=== PATIENT | male | born 1980 | race Caucasian/White ===

== ENCOUNTER 2017-03-26 10:54 | Emergency (ER) | payer BC, OTHER ==
[~2017-03-26] VITALS: Ht 185.4 cm; Wt 113.4 kg
[~2017-03-26 10:54] MED LIST: NAPR-243 PO; TRM50T PO
[2017-03-26 11:29] LABS: BASOPHILS % (AUTO) 0 % (0-10); EOSINOPHILS % (AUTO) 0 % (0-10); HEMATOCRIT 47 % (40-54); HEMOGLOBIN 16.7 G/DL (13.3-17.7); LYMPHOCYTES # (AUTO) 1.1 X 10^3 (1.0-4.0); LYMPHOCYTES % (AUTO) 13 % (12-44); MEAN CORPUSCULAR HEMOGLOBIN 31 PG (25-34); MEAN CORPUSCULAR HGB CONC 36 G/DL (32-36); MEAN CORPUSCULAR VOLUME 87 FL (80-99); MEAN PLATELET VOLUME 9.2 FL (7.4-10.4); MONOCYTES # (AUTO) 0.4 X 10^3 (0.0-1.0); MONOCYTES % (AUTO) 4 % (0-12); NEUTROPHILS # (AUTO) 6.7 X 10^3 (1.8-7.8); NEUTROPHILS % (AUTO) 82 % (42-75); PLATELET COUNT 265 10^3/uL (130-400); RED BLOOD COUNT 5.35 10^6/uL (4.35-5.85); RED CELL DISTRIBUTION WIDTH 12.3 % (10.0-14.5); WHITE BLOOD COUNT 8.2 10^3/uL (4.3-11.0)
[2017-03-26] MEDS ORDERED: NS IV 1000 ML 1,000 ML IV ONE (11:44)
[2017-03-26] MEDS ORDERED: FAMOTIDINE 20MG/2ML IV (PEPCID) IV STA (11:44)
--- NOTE | 2017-03-26 11:44 | ED Abdominal Pain ---
General Chief Complaint: Abdominal/GI Problems Stated Complaint: ABD PAIN Nursing Triage Note: pt presents to ed with upper abdominal pain starting at 0200 this am. Pt reports no v/d. Sepsis Screen: No Definite Risk Source of Information: Patient Exam Limitations: No Limitations History of Present Illness Date Seen by Provider: Mar 26, 2017 Time Seen By Provider: 11:44 Initial Comments 36-year-old male patient presents to the emergency department complains of generalized abdominal cramping with the greatest cramping in the epigastric area beginning 0200 this a.m. Patient denies vomiting or diarrhea. States he does feel like the vomiting and diarrhea may start soon. He did drink alcohol and eat a lot of spicy/fried foods last night while watching the game. Timing/Duration: Constant, Other (onset at 0200 this AM.) Severity/Quality: Burning, Cramping Location: Generalized Abdomen (with greatest pain in the upper abdomen.) Radiation: Epigastric Activities at Onset: Sleeping Modifying Factors: Worsens With Eating, Worsens With Palpation Allergies and Home Medications Allergies Coded Allergies: No Known Drug Allergies (Unverified , 11/13/10) Home Medications Famotidine 20 Mg Tablet, 20 MG PO BID, #30 Ref 0 Prescribed by: DASH SERRANO on 03/26/17 1357 Naproxen 500 Mg Tablet, 1 EACH PO TID PRN, #20 Ref 0 FOR PAIN Prescribed by: XIOMY KENNEDY on 11/13/10 1420 Omeprazole 40 Mg Capsule.dr, 40 MG PO DAILY, #30 Ref 0 Prescribed by: DASH SERRANO on 03/26/17 1402 Ondansetron 8 Mg Tab.rapdis, 8 MG PO Q6H PRN for NAUSEA/VOMITING-1ST LINE, #10 Ref 0 Prescribed by: DASH SERRANO on 03/26/17 1357 Tramadol Hcl 50 Mg Tab, 50 MG PO Q4-6HOURS PRN, #20 Ref 0 FOR PAIN Prescribed by: XIOMY KENNEDY on 11/13/10 1420 Review of Systems Constitutional: No chills, No diaphoresis, No dizziness, No fever, No malaise, No other (denies fatigue) EENTM: No Symptoms Reported Respiratory: Denies Cough, Denies Shortness of Air Cardiovascular: Denies Chest Pain, Denies Palpitations Gastrointestinal: See HPI, Denies Abdomen Distended, Abdominal Pain, Denies Constipated, Denies Diarrhea, Denies Difficulty Swallowing, Nausea, Poor Appetite, Poor Fluid Intake, Denies Rectal Bleeding, Denies Vomiting Genitourinary: Denies Burning, Denies Frequency, Denies Flank Pain, Denies Hematuria Musculoskeletal: no symptoms reported Skin: no symptoms reported Psychiatric/Neurological: No Symptoms Reported All Other Systems Reviewed Negative Unless Noted: Yes (Negative excepted noted.) Past Lzdabqf-Rhsmwn-Lqdbrn Hx Patient Social History Alcohol Use: Occasionally Uses Alcohol Beverage of Choice: Beer Recreational Drug Use: No Smoking Status: Never a Smoker 2nd Hand Smoke Exposure: No Recent Foreign Travel: No Contact w/Someone Who Travel: No Recent Infectious Disease Expo: No Recent Hopitalizations: No Physical Abuse: No Sexual Abuse: No Mistreated: No Fear: No Seasonal Allergies Seasonal Allergies: No Surgeries History of Surgeries: Yes (l knee) Respiratory History of Respiratory Disorde: No Cardiovascular History of Cardiac Disorders: No Neurological History of Neurological Disord: No Genitourinary History of Genitourinary Disor: No Gastrointestinal History of Gastrointestinal Di: No Musculoskeletal History of Musculoskeletal Dis: No Endocrine History of Endocrine Disorders: No HEENT History of HEENT Disorders: No Cancer History of Cancer: No Psychosocial History of Psychiatric Problem: No Suicide Risk Score: 0 Blood Transfusions History of Blood Disorders: No Reviewed Nursing Assessment Reviewed/Agree w Nursing PMH: Yes Family Medical History Significant Family History: No Pertinent Family Hx Physical Exam Vital Signs VS - Last 72 Hours, by Label 03/26/17 03/26/17 11:34 14:11 Temp 97.9 97.9 Pulse 66 70 Resp 18 18 B/P (MAP) 176/92 (120) Pulse Ox 99 100 Capillary Refill : Less Than 3 Seconds General Appearance: WD/WN, no apparent distress HEENT: PERRL/EOMI, pharynx normal Neck: supple, normal inspection Respiratory: lungs clear, normal breath sounds, no respiratory distress, no accessory muscle use Cardiovascular: normal peripheral pulses, regular rate, rhythm, no edema, no murmur Gastrointestinal: normal bowel sounds, soft, no organomegaly, no pulsatile mass , No distended, No guarding, No rebound, tenderness (mild epigastric and supraumbilical tenderness.), No mass Extremities: no pedal edema, no calf tenderness, normal capillary refill Back: normal inspection, no CVA tenderness Neurologic/Psychiatric: alert, normal mood/affect, oriented x 3 Skin: normal color, warm/dry Progress/Results/Core Measures Results/Orders Lab Results Laboratory Tests Test 03/26/17 11:22 03/26/17 13:23 Range/Units White Blood Count 8.2 4.3-11.0 10^3/uL Red Blood Count 5.35 4.35-5.85 10^6/uL Hemoglobin 16.7 13.3-17.7 G/DL Hematocrit 47 40-54 % Mean Corpuscular Volume 87 80-99 FL Mean Corpuscular Hemoglobin 31 25-34 PG Mean Corpuscular Hemoglobin Concent 36 32-36 G/DL Red Cell Distribution Width 12.3 10.0-14.5 % Platelet Count 265 130-400 10^3/uL Mean Platelet Volume 9.2 7.4-10.4 FL Neutrophils (%) (Auto) 82 H 42-75 % Lymphocytes (%) (Auto) 13 12-44 % Monocytes (%) (Auto) 4 0-12 % Eosinophils (%) (Auto) 0 0-10 % Basophils (%) (Auto) 0 0-10 % Neutrophils # (Auto) 6.7 1.8-7.8 X 10^3 Lymphocytes # (Auto) 1.1 1.0-4.0 X 10^3 Monocytes # (Auto) 0.4 0.0-1.0 X 10^3 Eosinophils # (Auto) 0.0 0.0-0.3 10^3/uL Basophils # (Auto) 0.0 0.0-0.1 10^3/uL Sodium Level 138 135-145 MMOL/L Potassium Level 4.8 3.6-5.0 MMOL/L Chloride Level 106 98-107 MMOL/L Carbon Dioxide Level 19 L 21-32 MMOL/L Anion Gap 13 5-14 MMOL/L Blood Urea Nitrogen 15 7-18 MG/DL Creatinine 1.03 0.60-1.30 MG/DL Estimat Glomerular Filtration Rate > 60 BUN/Creatinine Ratio 15 Glucose Level 116 H 70-105 MG/DL Calcium Level 9.3 8.5-10.1 MG/DL Total Bilirubin 0.6 0.1-1.0 MG/DL Aspartate Amino Transf (AST/SGOT) 26 5-34 U/L Alanine Aminotransferase (ALT/SGPT) 31 0-55 U/L Alkaline Phosphatase 46 40-136 U/L Total Protein 8.2 6.4-8.2 GM/DL Albumin 4.4 3.2-4.5 GM/DL Lipase 12 8-78 U/L Urine Color YELLOW Urine Clarity CLEAR Urine pH 5 5-9 Urine Specific Allen 1.020 1.016-1.022 Urine Protein NEGATIVE NEGATIVE Urine Glucose (UA) NEGATIVE NEGATIVE Urine Ketones 1+ H NEGATIVE Urine Nitrite NEGATIVE NEGATIVE Urine Bilirubin NEGATIVE NEGATIVE Urine Urobilinogen NORMAL NORMAL MG/DL Urine Leukocyte Esterase NEGATIVE NEGATIVE Urine RBC (Auto) 1+ H NEGATIVE Urine RBC RARE /HPF Urine WBC NONE /HPF Urine Squamous Epithelial Cells 0-2 /HPF Urine Crystals PRESENT H /LPF Urine Amorphous Sediment MOD ELENI URATES H /LPF Urine Bacteria NEGATIVE /HPF Urine Casts NONE /LPF Urine Mucus SMALL H /LPF Urine Culture Indicated NO My Orders Orders - DASH SERRANO Saline Lock/Iv-Start (03/26/17 11:15) Cbc With Automated Diff (03/26/17 11:15) Comprehensive Metabolic Panel (03/26/17 11:15) Lipase (03/26/17 11:15) Ua Culture If Indicated (03/26/17 11:15) Ondansetron Injection (Zofran Injectio (03/26/17 11:45) Famotidine Injection (Pepcid Injection) (03/26/17 11:44) Ns Iv 1000 Ml (Sodium Chloride 0.9%) (03/26/17 11:44) Lidocaine 2% Viscous 15 Ml (Xylocaine Vi (03/26/17 12:15) Antacid Suspension (Mylanta Suspension (03/26/17 12:15) Medications Given in ED Current Medications Medications Dose Ordered Sig/Kash Route Start Time Stop Time Status Last Admin Dose Admin Al Hydrox/Mg Hydrox/Simethicone 30 ml ONCE ONCE PO 03/26/17 12:15 03/26/17 12:16 DC 03/26/17 12:21 30 ML Lidocaine HCl 15 ml ONCE ONCE PO 03/26/17 12:15 03/26/17 12:16 DC 03/26/17 12:21 15 ML Ondansetron HCl 4 mg ONCE ONCE IVP 03/26/17 11:45 03/26/17 11:46 DC 03/26/17 12:02 4 MG Sodium Chloride 1,000 ml @ 0 mls/hr Q0M ONCE IV 03/26/17 11:44 03/26/17 11:45 DC 03/26/17 12:02 1,000 MLS/HR Vital Signs/I&O Vital Sign - Last 12Hours 03/26/17 03/26/17 11:34 14:11 Temp 97.9 97.9 Pulse 66 70 Resp 18 18 B/P (MAP) 176/92 (120) Pulse Ox 99 100 Blood Pressure Mean: 120 Departure Communication (Admissions) Progress Notes 1305 patient to the bathroom to give urine sample All laboratory findings discussed with the patient. Patient did report improvement in symptoms with the GI cocktail for a short time, but states pain did return. Patient denied need for further medications. Plan for discharge to home with oral Pepcid, Zofran, and Prilosec. Patient to follow-up with Dr. Lundberg for recheck and possible need for referral to a general surgeon for upper endoscopy if symptoms persist. He'll return to the emergency department for worsened symptoms or any other concerns. Impression Impression: Primary Impression: Gastritis Qualified Codes: K29.00 - Acute gastritis without bleeding Additional Impression: Volume depletion Disposition: HOME, SELF-CARE Condition: Improved Departure-Patient Inst. Decision time for Depature: 13:04 Referrals: LUIS BORGES MD, DANIEL J MD (PCP/Family) Primary Care Physician Patient Instructions: Gastritis (DC), Ulcer and Gastritis Diet, Dehydration, Adult (DC) Add. Discharge Instructions: All discharge instructions reviewed with patient and/or family. Voiced understanding. Medications as instructed. Tylenol [id number] as directed for pain. No ibuprofen or Aleve. No aspirin. Avoid spicy foods, fatty foods, carbonated beverages, caffeinated beverages, alcohol, smoking, secondhand smoke. Do not eat within 2 hours of lying down. Follow-up with your primary care provider for recheck as an outpatient. They may refer you to a general surgeon for upper endoscopy if needed. Return to the emergency department for worsened pain, vomiting, vomiting blood, rectal bleeding, black stools, abdominal swelling, fever, or any other concerns. Scripts Omeprazole (Omeprazole) 40 Mg Capsule. 40 MG PO DAILY, #30 CAP 0 Refills Prov: DASH SERRANO 03/26/17 Ondansetron (Ondansetron Odt) 8 Mg Tab.rapdis 8 MG PO Q6H Y for NAUSEA/VOMITING-1ST LINE, #10 TAB 0 Refills Prov: DASH SERRANO 03/26/17 Famotidine (Pepcid) 20 Mg Tablet 20 MG PO BID, #30 TAB 0 Refills Prov: DASH SERRANO 03/26/17 Work/School Note: Work Release Form Date Seen in the Emergency Department: Mar 26, 2017 Return to Work: Mar 27, 2017 DASH SERRANO Mar 26, 2017 11:44
[2017-03-26] MEDS ORDERED: ONDANSETRON 4 MG/2 ML (SDV) Z0FRAN IVP ONE (11:45)
[2017-03-26 11:47] LABS: ALANINE AMINOTRANSFERASE 31 U/L (0-55); ALBUMIN 4.4 GM/DL (3.2-4.5); ALKALINE PHOSPHATASE 46 U/L (40-136); BILIRUBIN,TOTAL 0.6 MG/DL (0.1-1.0); BUN/CREATININE RATIO 15; CALCIUM 9.3 MG/DL (8.5-10.1); CARBON DIOXIDE 19 MMOL/L (21-32); CHLORIDE 106 MMOL/L (98-107); CREATININE SERUM 1.03 MG/DL (0.60-1.30); GFR ESTIMATED > 60; GLUCOSE 116 MG/DL (70-105); LIPASE 12 U/L (8-78); POTASSIUM 4.8 MMOL/L (3.6-5.0); SODIUM 138 MMOL/L (135-145); TOTAL PROTEIN 8.2 GM/DL (6.4-8.2)
[2017-03-26] MEDS ORDERED: LIDOCAINE 2% VISCOUS 15 ML UDC PO ONE (12:15)
[2017-03-26] MEDS ORDERED: ANTACID SUSP 30 ML UDC (MYLANTA) PO ONE (12:15)
[2017-03-26 13:33] LABS: BILIRUBIN,URINE NEGATIVE (NEGATIVE); CLARITY,URINE CLEAR; COLOR,URINE YELLOW; GLUCOSE, URINE (UA) NEGATIVE (NEGATIVE); KETONES,URINE 1+ (NEGATIVE); LEUKOCYTE ESTERASE ,URINE NEGATIVE (NEGATIVE); NITRITE,URINE NEGATIVE (NEGATIVE); PH,URINE 5 (5-9); PROTEIN,URINE NEGATIVE (NEGATIVE); UROBILINOGEN,URINE NORMAL (NORMAL)
[2017-03-26 13:48] LABS: BACTERIA,URINE NEGATIVE /HPF; RBC,URINE RARE /HPF; SQUAMOUS EPITHELIAL CELL,UR 0-2 /HPF
[2017-03-26 13:50] LABS: AMORPHOUS SEDIMENT,UR MOD AMOR URATES /LPF
[2017-03-26] MEDS ORDERED: FAMO-119 PO (13:57)
[2017-03-26] MEDS ORDERED: ONDA8TAB13 PO (13:57)
[2017-03-26] MEDS ORDERED: OMEP40CA36 PO (14:02)
[2017-03-26 14:11] VITALS: BP 156/80
[2017-03-27] MEDS ORDERED: ACHD5005 PO (03:07)
[2017-03-27] MEDS ORDERED: SUCR1TAB PO (03:07)
[2017-03-29] MEDS ORDERED: SUCR1TAB36 PO (10:47)
[2017-03-29] MEDS ORDERED: PANT40TA2 PO (10:47)
== END 2017-03-26 14:11 | disposition home or self-care (01) ==
LOC: EDUNIT# 10:54 → ER 10:56
DX: K29.70 Gastritis, unspecified, without bleeding (principal); E86.9 Volume depletion, unspecified
CPT/HCPCS: 36415; 80053; 81000; 83690; 85025; 96361; 96374; 96375

== ENCOUNTER 2017-03-26 22:45 | Emergency (ER) | payer OTHER ==
[~2017-03-26] VITALS: Ht 185.4 cm; Wt 113.4 kg
[~2017-03-26 22:45] MED LIST changes: +FAMO-119 PO; +OMEP40CA36 PO; +ONDA8TAB13 PO
[2017-03-26] MEDS ORDERED: FAMOTIDINE 20MG/2ML IV (PEPCID) IV STA (23:35)
[2017-03-26] MEDS ORDERED: fentaNYL INJECTION 100 MCG/2 ML AMP IVP STA (23:35)
[2017-03-26] MEDS ORDERED: NS IV 1000 ML 1,000 ML IV STA (23:35)
[2017-03-26] MEDS ORDERED: fentaNYL INJECTION 100 MCG/2 ML AMP ONE (23:37)
[2017-03-26] MEDS ORDERED: ONDANSETRON 4 MG/2 ML (SDV) Z0FRAN IVP ONE (23:45)
--- NOTE | 2017-03-26 23:51 | ED Abdominal Pain ---
General Chief Complaint: Abdominal/GI Problems Stated Complaint: STOMACH PAIN Nursing Triage Note: PT PRESENTS TO ED WITH UPPER ABDOMINAL PAIN. DENIES N/V/D. PT WAS SEEN IN ED EARLIER BUT REPORTS PAIN HAS INCREASED. Sepsis Screen: No Definite Risk Source of Information: Patient Exam Limitations: No Limitations History of Present Illness Date Seen by Provider: Mar 26, 2017 Time Seen by Provider: 23:37 Initial Comments Here with report of central abdominal pain. Seen earlier today for the same. Apparently celebrated quite a bit with the football games last night and drink a fair amount of alcohol and he ate a bunch of [employer] party food. Today he had the pain was seen here for that and labs were negative. Sent home. Returns tonight for persistent pain that worsened after he ate a bowl of oatmeal. States he's never had anything like this before. Timing/Duration: 24 Hours Severity/Quality: Moderate, Severe Location: Epigastric Radiation: No Radiation Activities at Onset: None Modifying Factors: Improves With Analgesics, Worsens With Eating Associated Symptoms: No Back Pain, No Chest Pain, No Fever/Chills, Nausea/ Vomiting, No Shortness of Air, No Swelling/Mass in Abdomen, No Weakness Allergies and Home Medications Allergies Coded Allergies: No Known Drug Allergies (Unverified , 11/13/10) Home Medications Famotidine 20 Mg Tablet, 20 MG PO BID, #30 Ref 0 Prescribed by: DASH SERRANO on 03/26/17 1357 Hydrocodone Bit/Acetaminophen 1 Tab Tab, 1-2 EACH PO Q6H PRN for PAIN-MODERATE, #16 Ref 0 Prescribed by: BETHEL HOLLIDAY on 03/27/17 0307 Naproxen 500 Mg Tablet, 1 EACH PO TID PRN, #20 Ref 0 FOR PAIN Prescribed by: XIOMY KENNEDY on 11/13/10 1420 Omeprazole 40 Mg Capsule.dr, 40 MG PO DAILY, #30 Ref 0 Prescribed by: DASH SERRANO on 03/26/17 1402 Ondansetron 8 Mg Tab.rapdis, 8 MG PO Q6H PRN for NAUSEA/VOMITING-1ST LINE, #10 Ref 0 Prescribed by: DASH SERRANO on 03/26/17 1357 Sucralfate 1 Gm Tablet, 1 GM PO ACHS, #60 Ref 1 Chew tablet to a slurry and then swallow Prescribed by: BETHEL HOLLIDAY on 03/27/17 0307 Tramadol Hcl 50 Mg Tab, 50 MG PO Q4-6HOURS PRN, #20 Ref 0 FOR PAIN Prescribed by: XIOMY KENNEDY on 11/13/10 1420 Review of Systems Constitutional: see HPI, No chills, No fever EENTM: No Symptoms Reported Respiratory: No Symptoms Reported Cardiovascular: No Symptoms Reported Gastrointestinal: See HPI, Abdominal Pain, Nausea, Denies Vomiting Genitourinary: No Symptoms Reported Musculoskeletal: no symptoms reported Skin: no symptoms reported All Other Systems Reviewed Negative Unless Noted: Yes Past Rnvpeny-Fhbyjf-Bkmqxh Hx Patient Social History Alcohol Use: Occasionally Uses Number of Drinks Today: AA Alcohol Beverage of Choice: Beer Recreational Drug Use: No Smoking Status: Never a Smoker 2nd Hand Smoke Exposure: No Recent Foreign Travel: No Contact w/Someone Who Travel: No Recent Infectious Disease Expo: No Recent Hopitalizations: No Seasonal Allergies Seasonal Allergies: No Surgeries History of Surgeries: Yes (l knee) Respiratory History of Respiratory Disorde: No Cardiovascular History of Cardiac Disorders: No Neurological History of Neurological Disord: No Genitourinary History of Genitourinary Disor: No Gastrointestinal History of Gastrointestinal Di: No Musculoskeletal History of Musculoskeletal Dis: No Endocrine History of Endocrine Disorders: No HEENT History of HEENT Disorders: No Cancer History of Cancer: No Psychosocial History of Psychiatric Problem: No Integumentary History of Skin or Integumenta: No Blood Transfusions History of Blood Disorders: No Reviewed Nursing Assessment Reviewed/Agree w Nursing PMH: Yes Family Medical History Significant Family History: No Pertinent Family Hx Physical Exam Vital Signs VS - Last 72 Hours, by Label 03/26/17 03/26/17 23:25 23:42 Temp 96.6 96.6 Pulse 62 Resp 20 B/P (MAP) 154/92 (112) Pulse Ox 99 Capillary Refill : Less Than 3 Seconds General Appearance: WD/WN, mild distress HEENT: PERRL/EOMI, pharynx normal Neck: full range of motion, supple Respiratory: lungs clear, normal breath sounds Cardiovascular: regular rate, rhythm, no murmur Gastrointestinal: soft, tenderness (epigastric region) Extremities: non-tender, normal inspection Back: normal inspection, no CVA tenderness, no vertebral tenderness Neurologic/Psychiatric: alert, oriented x 3 Skin: normal color, warm/dry Progress/Results/Core Measures Results/Orders Lab Results Laboratory Tests Test 03/26/17 23:40 Range/Units White Blood Count 8.2 4.3-11.0 10^3/uL Red Blood Count 5.15 4.35-5.85 10^6/uL Hemoglobin 16.2 13.3-17.7 G/DL Hematocrit 45 40-54 % Mean Corpuscular Volume 87 80-99 FL Mean Corpuscular Hemoglobin 32 25-34 PG Mean Corpuscular Hemoglobin Concent 36 32-36 G/DL Red Cell Distribution Width 12.3 10.0-14.5 % Platelet Count 277 130-400 10^3/uL Mean Platelet Volume 9.7 7.4-10.4 FL Neutrophils (%) (Auto) 66 42-75 % Lymphocytes (%) (Auto) 24 12-44 % Monocytes (%) (Auto) 9 0-12 % Eosinophils (%) (Auto) 1 0-10 % Basophils (%) (Auto) 0 0-10 % Neutrophils # (Auto) 5.4 1.8-7.8 X 10^3 Lymphocytes # (Auto) 2.0 1.0-4.0 X 10^3 Monocytes # (Auto) 0.7 0.0-1.0 X 10^3 Eosinophils # (Auto) 0.1 0.0-0.3 10^3/uL Basophils # (Auto) 0.0 0.0-0.1 10^3/uL Sodium Level 137 135-145 MMOL/L Potassium Level 3.9 3.6-5.0 MMOL/L Chloride Level 104 98-107 MMOL/L Carbon Dioxide Level 22 21-32 MMOL/L Anion Gap 11 5-14 MMOL/L Blood Urea Nitrogen 12 7-18 MG/DL Creatinine 1.12 0.60-1.30 MG/DL Estimat Glomerular Filtration Rate > 60 BUN/Creatinine Ratio 11 Glucose Level 109 H 70-105 MG/DL Calcium Level 9.0 8.5-10.1 MG/DL Total Bilirubin 0.8 0.1-1.0 MG/DL Aspartate Amino Transf (AST/SGOT) 20 5-34 U/L Alanine Aminotransferase (ALT/SGPT) 29 0-55 U/L Alkaline Phosphatase 46 40-136 U/L Total Protein 7.4 6.4-8.2 GM/DL Albumin 4.3 3.2-4.5 GM/DL My Orders Orders - BETHEL HOLLIDAY MD Ondansetron Injection (Zofran Injectio (03/26/17 23:45) Ns Iv 1000 Ml (Sodium Chloride 0.9%) (03/26/17 23:35) Famotidine Injection (Pepcid Injection) (03/26/17 23:35) Saline Lock/Iv-Start (03/26/17 23:35) Ct Abdomen/Pelvis W (03/26/17 23:35) Fentanyl Injection (Sublimaze Injection (03/26/17 23:35) Fentanyl Injection (Sublimaze Injection (03/26/17 23:37) Iohexol Injection (Omnipaque 350 Mg/Ml 1 (03/27/17 00:00) Ns (Ivpb) (Sodium Chloride 0.9% Ivpb Bag (03/27/17 00:00) Fentanyl Injection (Sublimaze Injection (03/27/17 00:03) Pantoprazole Injection (Protonix Injecti (03/27/17 00:45) Cbc With Automated Diff (03/27/17 00:32) Comprehensive Metabolic Panel (03/27/17 00:32) Hydromorphone Injection (Dilaudid Inject (03/27/17 01:01) Hydromorphone Injection (Dilaudid Inject (03/27/17 01:01) Sucralfate Tablet (Carafate Tablet) (03/27/17 01:45) Sucralfate Tablet (Carafate Tablet) (03/27/17 01:37) Hydromorphone Injection (Dilaudid Inject (03/27/17 02:19) Rx-Hydrocodone/Apap 5-325 Mg (Rx-Vicodin (03/27/17 03:15) Medications Given in ED Current Medications Medications Dose Ordered Sig/Kash Route Start Time Stop Time Status Last Admin Dose Admin Iohexol 100 ml ONCE ONCE IV 03/27/17 00:00 03/27/17 00:01 DC 03/26/17 23:54 100 ML Ondansetron HCl 4 mg ONCE ONCE IVP 1 23:45 03/26/17 23:46 DC 03/26/17 23:42 4 MG Pantoprazole 40 mg ONCE ONCE IV 03/27/17 00:45 03/27/17 00:46 DC 03/27/17 00:42 40 MG Sodium Chloride 100 ml ONCE ONCE IV 03/27/17 00:00 03/27/17 00:01 DC 03/26/17 23:55 80 ML Sucralfate 2 gm ONCE ONCE PO 03/27/17 01:45 03/27/17 01:46 DC 03/27/17 01:45 2 GM Vital Signs/I&O Vital Sign - Last 12Hours 03/26/17 03/26/17 23:25 23:42 Temp 96.6 96.6 Pulse 62 Resp 20 B/P (MAP) 154/92 (112) Pulse Ox 99 Blood Pressure Mean: 112 Progress Note : Progress Note Seen and evaluated. IV, labs, fentanyl 75 g IV, Pepcid 20 mg IV and Zofran 4 mg IV ordered. Normal saline 1 L bolus. Monitor patient. Throughout the course of the ER stay, patient required repeat dosing of fentanyl as well as Dilaudid and ultimately pain improved after Protonix 40 mg IV and Carafate 2 g by mouth and Dilaudid 1 mg IV. 0305: Pain is improved finally. He wants to follow-up with Dr. Garza. I will send of chart to him. Discharged home with return precautions. Patient verbalize understanding instructions and agreement with plan. Diagnostic Imaging Diagonstic Imaging: CT Plain Films/CT/US/NM/MRI: abdomen, pelvis Comments No acute findings. Minimal nonspecific free fluid in the pelvic cul-de-sac. Bilateral L5 pars defects with grade 1 anterolisthesis of L5 on S1. Reviewed: Reviewed Night [facility] Study Departure Impression Impression: Primary Impression: Gastritis Qualified Codes: K29.00 - Acute gastritis without bleeding Additional Impression: Epigastric abdominal pain Disposition: HOME, SELF-CARE Condition: Stable Departure-Patient Inst. Decision time for Depature: 03:04 Referrals: LIZETTE GARZA DANIEL J MD (PCP/Family) Primary Care Physician Patient Instructions: Acute Abdomen (Belly Pain), Adult (DC), Gastritis (DC) Add. Discharge Instructions: All discharge instructions reviewed with patient and/or family. Voiced understanding. Take medications as prescribed. Call Dr. Garza today for recheck and further evaluation. Return for worse pain, fever, vomiting, weakness, breathing problems or other concerns as needed. Clear liquid diet for 24 hours and then advance as tolerated. Keep the diet very light for a few days. Scripts Hydrocodone Bit/Acetaminophen (Hydrocodone/Acetaminophen 5/325mg Tablet) 1 Tab Tab 1-2 EACH PO Q6H Y for PAIN-MODERATE, #16 TAB 0 Refills Prov: BETHEL HOLLIDAY MD 03/27/17 Sucralfate (Sucralfate) 1 Gm Tablet 1 GM PO ACHS, #60 TAB 1 Refill Chew tablet to a slurry and then swallow Prov: BETHEL HOLLIDAY MD 03/27/17 Copy Copies To 1: LIZETTE GARZA TIMOTHY D MD Mar 26, 2017 23:51
[2017-03-27] MEDS ORDERED: IOHEXOL 350 MG/ML 100 ML (OMNIPAQUE 350) VIAL IV ONE
[2017-03-27] MEDS ORDERED: NS 100 ML (IVPB) BAG IV ONE
[2017-03-27] MEDS ORDERED: fentaNYL INJECTION 100 MCG/2 ML AMP IVP STA (00:03)
[2017-03-27 00:40] LABS: BASOPHILS % (AUTO) 0 % (0-10); EOSINOPHILS # (AUTO) 0.1 10^3/uL (0.0-0.3); EOSINOPHILS % (AUTO) 1 % (0-10); HEMATOCRIT 45 % (40-54); HEMOGLOBIN 16.2 G/DL (13.3-17.7); LYMPHOCYTES % (AUTO) 24 % (12-44); MEAN CORPUSCULAR HEMOGLOBIN 32 PG (25-34); MEAN CORPUSCULAR HGB CONC 36 G/DL (32-36); MEAN CORPUSCULAR VOLUME 87 FL (80-99); MEAN PLATELET VOLUME 9.7 FL (7.4-10.4); MONOCYTES # (AUTO) 0.7 X 10^3 (0.0-1.0); MONOCYTES % (AUTO) 9 % (0-12); NEUTROPHILS # (AUTO) 5.4 X 10^3 (1.8-7.8); NEUTROPHILS % (AUTO) 66 % (42-75); PLATELET COUNT 277 10^3/uL (130-400); RED BLOOD COUNT 5.15 10^6/uL (4.35-5.85); RED CELL DISTRIBUTION WIDTH 12.3 % (10.0-14.5); WHITE BLOOD COUNT 8.2 10^3/uL (4.3-11.0)
[2017-03-27] MEDS ORDERED: PANTOPRAZOLE 40 MG/10 ML (PROTONIX) VIAL IV ONE (00:45)
[2017-03-27 00:50] LABS: ALANINE AMINOTRANSFERASE 29 U/L (0-55); ALBUMIN 4.3 GM/DL (3.2-4.5); ALKALINE PHOSPHATASE 46 U/L (40-136); BILIRUBIN,TOTAL 0.8 MG/DL (0.1-1.0); BUN/CREATININE RATIO 11; CARBON DIOXIDE 22 MMOL/L (21-32); CHLORIDE 104 MMOL/L (98-107); CREATININE SERUM 1.12 MG/DL (0.60-1.30); GFR ESTIMATED > 60; GLUCOSE 109 MG/DL (70-105); POTASSIUM 3.9 MMOL/L (3.6-5.0); SODIUM 137 MMOL/L (135-145); TOTAL PROTEIN 7.4 GM/DL (6.4-8.2)
[2017-03-27] MEDS ORDERED: HYDROmorphone (DILAUDID) 2 MG/ML VIAL ONE (01:01)
[2017-03-27] MEDS ORDERED: HYDROmorphone (DILAUDID) 2 MG/ML VIAL IVP STA ×2 (01:01→02:19)
[2017-03-27] MEDS ORDERED: SUCRALFATE 1 GM (CARAFATE) TAB ONE (01:37)
[2017-03-27] MEDS ORDERED: SUCRALFATE 1 GM (CARAFATE) TAB PO ONE (01:45)
[2017-03-27] MEDS ORDERED: SUCR1TAB PO (03:07)
[2017-03-27] MEDS ORDERED: ACHD5005 PO (03:07)
[2017-03-27] MEDS ORDERED: RX-HYDROCODONE/APAP 5/325 MG #4 TAB PK PO PRN (03:15)
[2017-03-27 03:16] VITALS: BP 133/79
--- NOTE | 2017-03-28 10:44 | Diagnostic Imaging Report ---
PROCEDURE: CT abdomen and pelvis with contrast. TECHNIQUE: Multiple contiguous axial images were obtained through the abdomen and pelvis after administration of intravenous contrast. INDICATION: Epigastric pain. No prior studies are available for comparison. The lung bases are clear. The liver and gallbladder are unremarkable. There is homogeneous enhancement to the pancreas. No peripancreatic inflammation is seen to suggest acute pancreatitis. The spleen is unremarkable. No adrenal mass is detected. The kidneys are unremarkable. The aorta is nonaneurysmal. The small and large bowel loops are of normal caliber. Appendix is unremarkable. There is no ascites. No inflammatory process is seen. The bladder and prostate are unremarkable. IMPRESSION: Unremarkable CT of the abdomen and pelvis. Dictated by: Dictated on workstation # [id number]
[2017-03-29] MEDS ORDERED: PANT40TA2 PO (10:47)
[2017-03-29] MEDS ORDERED: SUCR1TAB36 PO (10:47)
== END 2017-03-27 03:16 | disposition home or self-care (01) ==
LOC: EDUNIT# 22:45 → ER 22:46
DX: K29.70 Gastritis, unspecified, without bleeding (principal)
CPT/HCPCS: 36415; 74177; 80053; 85025; 96361; 96374; 96375; 96376

== ENCOUNTER 2017-03-28 12:17 | Outpatient (CLI) | payer OTHER ==
[~2017-03-28] VITALS: Ht 185.4 cm; Wt 113.4 kg
[~2017-03-28 12:17] MED LIST changes: +ACHD5005 PO; +SUCR1TAB PO
[2017-03-29] MEDS ORDERED: PANT40TA2 PO (10:47)
[2017-03-29] MEDS ORDERED: SUCR1TAB36 PO (10:47)
== END 2017-03-28 13:38 ==
LOC: PREOP 12:17
PROVIDERS: ATTEND Surgery
DX: Z01.818 Encounter for other preprocedural examination (principal); R10.13 Epigastric pain

== ENCOUNTER 2017-03-29 09:23 | Day surgery (SDC) | payer OTHER ==
[~2017-03-29] VITALS: Ht 185.4 cm; Wt 113.4 kg
[2017-03-29 09:40] VITALS: BP 124/69
[2017-03-29] MEDS ORDERED: LACTATED RINGERS 1,000 ML IV PRN (09:45)
[2017-03-29] MEDS ORDERED: HURRICAINE EXT TUBE (BENZOCAINE) XX PRN (09:45)
[2017-03-29] MEDS ORDERED: MIDAZOLAM 2 MG/2 ML (VERSED) VIAL ONE (10:14)
[2017-03-29] MEDS ORDERED: proPOfol 200 MG/20 ML (DIPRIVAN) VIAL IV ONE (10:14)
[2017-03-29] MEDS ORDERED: HURRICAINE EXT TUBE (BENZOCAINE) ONE (10:20)
[2017-03-29] MEDS ORDERED: PANT40TA2 PO (10:47)
[2017-03-29] MEDS ORDERED: SUCR1TAB36 PO (10:47)
--- NOTE | 2017-03-29 10:49 | Discharge Inst-Simple/Standard ---
Discharge Inst-Standard Discharge Medications New, Converted or Re-Newed RX: Transmitted to Pharmacy Patient Instructions/Follow Up Plan of Care/Instructions/FU: 2 weeks Paolo Activity as Tolerated: Yes Discharge Diet: Liquid Diet LIZETTE GARZA DO Mar 29, 2017 10:49
--- NOTE | 2017-03-29 10:51 | Progress Note-Pre Operative ---
Pre-Operative Progress Note H&P Reviewed The H&P was reviewed, patient examined and no changes noted. Date Seen by Provider: Mar 29, 2017 Time Seen by Provider: 10:10 Date H&P Reviewed: Mar 29, 2017 Time H&P Reviewed: 10:10 Pre-Operative Diagnosis: epigastric abdominal pain LIZETTE GARZA DO Mar 29, 2017 10:51
--- NOTE | 2017-03-29 10:52 | Progress Note-Post Operative ---
Post-Operative Progess Note Surgeon (s)/Splitter Head (s) Surgeon LIZETTE GARZA DO Splitter Head: na Pre-Operative Diagnosis epigastric abdominal pain Post-Operative Diagnosis gastritis Procedure & Operative Findings Date of Procedure 03/29/17 Procedure Performed/Findings egd c biopsies Anesthesia Type per director of music Estimated Blood Loss Estimated blood loss (mL): none Specimens/Packing Specimens Removed antrum, body LIZETTE GARZA DO Mar 29, 2017 10:52
[2017-03-29 11:05] VITALS: BP 140/80
[2017-03-29 11:25] VITALS: BP 131/78
--- NOTE | 2017-03-29 12:32 | OPERATIVE REPORT ---
DATE OF SERVICE: 03/29/2017 PREOPERATIVE DIAGNOSIS: Epigastric abdominal pain. POSTOPERATIVE DIAGNOSIS: Gastritis. PROCEDURE: EGD with biopsies. SURGEON: Lizette Boone DO ANESTHESIA: Per MANHOLE STRIPPER. ESTIMATED BLOOD LOSS: None. COMPLICATIONS: None. INDICATIONS: The patient is a 36-year-old male who has been having significant abdominal pain in the epigastric region. Having some nausea but no vomiting. He was explained risks and benefits of having EGD performed for further evaluation. He understands risks and benefits and wished to proceed with procedure. Consent was signed in the chart. PROCEDURE IN DETAIL: The patient was taken to the endoscopy suite, placed in the left lateral recumbent position. Timeout was performed. Scope was inserted in mouth, down into esophagus, stomach and into the duodenum without difficulty. There are no polyps, masses or ulcerations. Some slight erythematous changes though. Scope was then slowly retracted back into the stomach, which was further insufflated. Biopsy of the antrum was obtained. There are no polyps, masses or ulcerations within the stomach, also with retroflexion. There is, however, significant amount of erythematous changes throughout the majority of the stomach. Biopsies of the antrum and the body were obtained. No hiatal hernia. Scope was returned to its normal position, slowly withdrawn back into the distal esophagus. The GE junction had normal appearance. Scope was slowly retracted back until completely removed, noting no other pathology. The patient tolerated procedure well without any complications and taken to the recovery room in stable condition. RECOMMENDATIONS: The patient to be on Protonix 40 mg daily and Carafate 1 gram four times a day. We will await biopsy results. We will do liquid diet and advance as tolerates. If he has any worsening of symptoms, he should be reevaluated at that time. Job ID: [id number] DocumentID: [id number] Dictated Date: 03/29/2017 10:55:07 Environmental Compliance Technician Date: 03/29/2017 12:31:26 Dictated By: LIZETTE BOONE DO [facility]
== END 2017-03-29 11:30 | disposition home or self-care (01) ==
LOC: ENDO 09:23
PROVIDERS: ATTEND Surgery
DX: K29.70 Gastritis, unspecified, without bleeding (principal); E66.9 Obesity, unspecified; Z68.33 Body mass index [BMI] 33.0-33.9, adult